=== PATIENT | male | born 1960 | race African-American/Black ===

== ENCOUNTER 2017-03-24 20:16 | Emergency (ER) | payer OTHER ==
[~2017-03-24] VITALS: Ht 182.9 cm; Wt 88.6 kg
[~2017-03-24 20:16] MED LIST: ENAL5TAB98 PO; GLYB1TAB50 PO; LIPI80TA16 PO; METO25 PO; PROT40TA PO
[2017-03-24 20:18] VITALS: BP 186/113; PULSE 109; RESP 18; TEMP 98.9; O2SAT 98
[2017-03-24] MEDS ORDERED: METO25TA3 PO (20:53)
[2017-03-24] MEDS ORDERED: ENAL5TAB98 PO (20:53)
[2017-03-24] MEDS ORDERED: GLYB2.5T3 PO (20:53)
[2017-03-24] MEDS ORDERED: LIPI80TA PO (20:53)
[2017-03-24] MEDS ORDERED: PROT40TA PO (20:53)
--- NOTE | 2017-03-24 21:20 | PD ---
HPI Chief Complaint: Abnormal Results Time Seen by Provider: 20:56 Travel History International Travel<30 days: No Contact w/Intl Traveler<30days: No Traveled to known affect area: No History of Present Illness HPI 56-year-old black male with a known history of metastatic prostate cancer, [place], coronary artery disease, hypertension, diabetes, hypercholesterolemia presents to emergency department at the request of EMS. The patient presents by POV. He states that he had a CAT scan performed at [facility] due to his recent worsening prostate cancer. He states that an ambulance showed up at the house earlier this evening and was advised that the [facility] had contacted the [facility] to bring the patient to the hospital emergently. The patient declined transport and came in POV with his . The patient is unaware of why he had to come to the hospital. He did not know with the reason for the results of the CAT scan was. The patient denies any chest pain, shortness of breath, nausea, vomiting, abdominal pain, numbness, tingling or focal weakness. Patient states that he was cooking dinner at the time EMS showed up. PFSH Past Medical History Narrative Medical Metastatic prostate cancer, coronary artery disease, [place], diabetes, hypercholesterolemia, hypertension Blood Disorders: No Cancer: No Cardiac Catheterization: Yes (WITH STENT) Cardiovascular Problems: Yes (HTN, hyperlipidemia) High Cholesterol: Yes Diabetes: Yes Patient Takes Glucophage: No Endocrine: No Genitourinary: No Hypertension: Yes Immune Disorder: No Musculoskeletal: No Neurologic: No Reproductive: No Respiratory: No Tetanus Vaccination: < 5 Years Influenza Vaccination: No Social History Alcohol Use: No Tobacco Use: No Substance Use: No Allergies-Medications (Allergen,Severity, Reaction): Coded Allergies: No Known Allergies (Verified , 06/01/14) Reported Meds & Prescriptions Reported Meds & Active Scripts Active Reported Protonix (Pantoprazole Sodium) 40 Mg Tab 40 Mg PO DAILY Metoprolol Tartrate 25 Mg Tab 25 Mg PO BID Glyburide 2.5 Mg Tab 2.5 Mg PO DAILY Take with meals at the same time each day Vasotec (Enalapril Maleate) 5 Mg Tab 5 Mg PO DAILY Lipitor (Atorvastatin Calcium) 80 Mg Tab 80 Mg PO HS Review of Systems General / Constitutional: No: Fever Eyes: No: Visual changes HENT: No: Headaches Cardiovascular: No: Chest Pain or Discomfort Respiratory: No: Shortness of Breath Gastrointestinal: No: Abdominal Pain Genitourinary: No: Dysuria Musculoskeletal: No: Pain Skin: No Rash Neurologic: No: Weakness Psychiatric: No: Depression Endocrine: No: Polydipsia Hematologic/Lymphatic: No: Easy Bruising Physical Exam Narrative GENERAL: Well-developed, well-nourished in no apparent distress. Nontoxic appearing. HEAD: Normocephalic, atraumatic. EYES: Pupils equal round and reactive. Extraocular motions intact. No scleral icterus. No injection or drainage. ENT: Nose clear. Throat without erythema, tonsillar hypertrophy or exudate. Uvula midline. Airway patent. NECK: Trachea midline. Supple, nontender, moves head freely. No central bony tenderness or spasm. CARDIOVASCULAR: Regular rate and rhythm without murmurs, gallops, or rubs. RESPIRATORY: Clear to auscultation. Breath sounds equal bilaterally. No wheezes , rales, or rhonchi. GASTROINTESTINAL: Abdomen soft, non-tender, nondistended. No hepato-splenomegaly , or palpable masses. No guarding. EXTREMITIES: No clubbing, cyanosis, or edema. No joint tenderness. BACK: Nontender without deformity. No flank tenderness. NEUROLOGICAL: Awake, alert and oriented x 3 .Cranial nerves grossly intact. Motor and sensory grossly within normal limits. Normal speech. Data Data Last Documented VS Vital Signs Date Time Temp Pulse Resp B/P (MAP) Pulse Ox O2 Delivery O2 Flow Rate FiO2 03/24/17 20:18 98.9 109 18 186/113 (137) 98 Room Air Orders Orders Complete Blood Count With Diff (03/24/17 21:07) Comprehensive Metabolic Panel (03/24/17 21:07) Prothrombin Time / Inr (Pt) (03/24/17 21:07) Act Partial Throm Time (Ptt) (03/24/17 21:07) Ua Includes Microscopic (03/24/17 21:07) Iv Access Insert/Monitor (03/24/17 21:07) Ecg Monitoring (03/24/17 21:07) Type And Screen (03/24/17 21:07) Blood Pressure (03/24/17 21:07) Ct Brain W/O Iv Contrast(Rout) (03/24/17 22:31) Ventilation & Perfusion Scan (03/24/17 22:31) Electrocardiogram (03/24/17 23:42) Troponin I (03/24/17 21:35) Labs Laboratory Tests Test 03/24/17 21:35 White Blood Count 7.0 TH/MM3 Red Blood Count 3.79 MIL/MM3 Hemoglobin 11.2 GM/DL Hematocrit 33.9 % Mean Corpuscular Volume 89.4 FL Mean Corpuscular Hemoglobin 29.6 PG Mean Corpuscular Hemoglobin Concent 33.1 % Red Cell Distribution Width 14.0 % Platelet Count 288 TH/MM3 Mean Platelet Volume 7.8 FL Neutrophils (%) (Auto) 62.7 % Lymphocytes (%) (Auto) 26.2 % Monocytes (%) (Auto) 9.4 % Eosinophils (%) (Auto) 0.9 % Basophils (%) (Auto) 0.8 % Neutrophils # (Auto) 4.4 TH/MM3 Lymphocytes # (Auto) 1.8 TH/MM3 Monocytes # (Auto) 0.7 TH/MM3 Eosinophils # (Auto) 0.1 TH/MM3 Basophils # (Auto) 0.1 TH/MM3 CBC Comment DIFF FINAL Differential Comment Prothrombin Time 10.8 SEC Prothromb Time International Ratio 1.1 RATIO Activated Partial Thromboplast Time 25.0 SEC Blood Urea Nitrogen 18 MG/DL Creatinine 1.44 MG/DL Random Glucose 166 MG/DL Total Protein 8.1 GM/DL Albumin 4.5 GM/DL Calcium Level 9.5 MG/DL Alkaline Phosphatase 57 U/L Aspartate Amino Transf (AST/SGOT) 24 U/L Alanine Aminotransferase (ALT/SGPT) 43 U/L Total Bilirubin 0.4 MG/DL Sodium Level 136 MEQ/L Potassium Level 4.1 MEQ/L Chloride Level 104 MEQ/L Carbon Dioxide Level 25.1 MEQ/L Anion Gap 7 MEQ/L Estimat Glomerular Filtration Rate 62 ML/MIN Troponin I LESS THAN 0.02 NG/ML MDM Medical Decision Making Medical Screen Exam Complete: Yes Emergency Medical Condition: Yes Medical Record Reviewed: Yes Interpretation(s) CT brain: Negative Laboratory Tests Test 03/24/17 21:35 White Blood Count 7.0 TH/MM3 Red Blood Count 3.79 MIL/MM3 Hemoglobin 11.2 GM/DL Hematocrit 33.9 % Mean Corpuscular Volume 89.4 FL Mean Corpuscular Hemoglobin 29.6 PG Mean Corpuscular Hemoglobin Concent 33.1 % Red Cell Distribution Width 14.0 % Platelet Count 288 TH/MM3 Mean Platelet Volume 7.8 FL Neutrophils (%) (Auto) 62.7 % Lymphocytes (%) (Auto) 26.2 % Monocytes (%) (Auto) 9.4 % Eosinophils (%) (Auto) 0.9 % Basophils (%) (Auto) 0.8 % Neutrophils # (Auto) 4.4 TH/MM3 Lymphocytes # (Auto) 1.8 TH/MM3 Monocytes # (Auto) 0.7 TH/MM3 Eosinophils # (Auto) 0.1 TH/MM3 Basophils # (Auto) 0.1 TH/MM3 CBC Comment DIFF FINAL Differential Comment Prothrombin Time 10.8 SEC Prothromb Time International Ratio 1.1 RATIO Activated Partial Thromboplast Time 25.0 SEC Blood Urea Nitrogen 18 MG/DL Creatinine 1.44 MG/DL Random Glucose 166 MG/DL Total Protein 8.1 GM/DL Albumin 4.5 GM/DL Calcium Level 9.5 MG/DL Alkaline Phosphatase 57 U/L Aspartate Amino Transf (AST/SGOT) 24 U/L Alanine Aminotransferase (ALT/SGPT) 43 U/L Total Bilirubin 0.4 MG/DL Sodium Level 136 MEQ/L Potassium Level 4.1 MEQ/L Chloride Level 104 MEQ/L Carbon Dioxide Level 25.1 MEQ/L Anion Gap 7 MEQ/L Estimat Glomerular Filtration Rate 62 ML/MIN Troponin I LESS THAN 0.02 NG/ML Last 24 hours Impressions Lung Scan- Nuclear Medicine 03/24/172230 Signed Impressions: Service Date/Time: Friday, March 24, 2017 23:54 - CONCLUSION: Low probability for pulmonary embolus. Cornell Sullivan MD Differential Diagnosis Differential diagnoses: COPD, pulmonary embolus, coronary disease, metastatic prostate cancer Narrative Course IV access is obtained. Routine laboratory tests sent for analysis. Bilateral upper extremity blood pressures performed. His blood pressure in the right arm is 182/111 and blood pressure in the left arm is 175/106. Patient is on a panel monitor and O2 sat monitor. Patient's given a liter bolus normal saline. EMS was called. They informed us that the patient had a CAT scan performed today which showed possible pulmonary embolus. The patient's ventilation perfusion scan is low probability. CT brain is negative for acute intercranial pathology. Patient's laboratory tests including EKG and cardiac markers are negative. Patient is informed of these findings. This is medical clearance, abnormal CT abdomen Diagnosis Primary Impression: medical clearance exam Additional Impressions: Abnormal CAT scan Metastatic malignant neoplasm to prostate Patient Instructions: General Instructions Additional Instructions: Rest. [facility] office in the morning. Disposition: 01 DISCHARGE HOME Condition: Stable Alan Ram Mar 24, 2017 21:20
[2017-03-24 21:58] LABS: AUTOMATED NEUTROPHIL # 4.4 TH/MM3 (1.8-7.7); BASOPHIL # 0.1 TH/MM3 (0-0.2); BASOPHIL % 0.8 % (0.0-2.0); EOSINOPHIL # 0.1 TH/MM3 (0-0.4); EOSINOPHIL % 0.9 % (0.0-4.0); HEMATOCRIT 33.9 % (39.0-51.0); HEMOGLOBIN 11.2 GM/DL (13.0-17.0); LYMPH % 26.2 % (9.0-44.0); LYMPHOCYTE # 1.8 TH/MM3 (1.0-4.8); MEAN CELL VOLUME 89.4 FL (80.0-100.0); MEAN CORPUSCULAR HEMOGLOBIN 29.6 PG (27.0-34.0); MEAN CORPUSCULAR HGB CONC 33.1 % (32.0-36.0); MEAN PLATELET VOLUME 7.8 FL (7.0-11.0); MONO % 9.4 % (0.0-8.0); MONOCYTE # 0.7 TH/MM3 (0-0.9); NEUT % 62.7 % (16.0-70.0); PLATELET COUNT 288 TH/MM3 (150-450); RED BLOOD COUNT 3.79 MIL/MM3 (4.50-5.90)
[2017-03-24 22:09] LABS: INTERNATIONAL NORMALIZED RATIO 1.1 RATIO; PROTHROMBIN TIME - PATIENT 10.8 SEC (9.8-11.6)
[2017-03-24 22:29] LABS: ALT (GPT) 43 U/L (12-78)
[2017-03-24 22:32] LABS: ALBUMIN 4.5 GM/DL (3.4-5.0); ALKALINE PHOSPHATASE 57 U/L (45-117); AST (GOT) 24 U/L (15-37); BICARBONATE 25.1 MEQ/L (21.0-32.0); BLOOD UREA NITROGEN 18 MG/DL (7-18); CALCIUM 9.5 MG/DL (8.5-10.1); CHLORIDE 104 MEQ/L (98-107); CREATININE 1.44 MG/DL (0.60-1.30); GLOMERULAR FILTRATION RATE 62 ML/MIN (>89); GLUCOSE,RANDOM 166 MG/DL (74-106); SODIUM (NA) 136 MEQ/L (136-145); TOTAL BILIRUBIN ADULT 0.4 MG/DL (0.2-1.0); TOTAL PROTEIN 8.1 GM/DL (6.4-8.2)
[2017-03-25 00:09] LABS: TROPONIN I LESS THAN 0.02 NG/ML (0.02-0.05)
--- NOTE | 2017-03-25 00:27 | RADRPT ---
EXAM DATE/TIME: 03/24/2017 23:54 [facility] COMPARISON: No previous studies available for comparison. INDICATIONS : Shortness of breath for one day. DOSE: 8.7 mCi Tc99m MAA IV 0.87 mCi Tc99m DTPA aerosol MEDICAL HISTORY : Carcinoma, prostate. Diabetes mellitus type 2. Cardiovascular disease SURGICAL HISTORY : Coronary artery stent. ENCOUNTER: Initial ACUITY: 1 day PAIN SCALE: 0/10 LOCATION: chest TECHNIQUE: Following five minutes of tidal breathing of DTPA aerosol, planar images of the lungs were performed in eight projections. The patient was then injected with MAA, and eight-view perfusion scan was perf ormed. FINDINGS: There is a homogeneous pattern of aerosol delivery to the periphery of both lungs. No focal ventilat ory defects are seen. The perfusion lung scan demonstrates a homogenous pattern of uptake in both lungs. No segmental or s ubsegmental defects are seen. A current chest x-ray is unavailable. CONCLUSION: Low probability for pulmonary embolus. Cornell Sullivan MD on March 25, 2017 at 0:24 Board Certified Radiologist. This report was verified electronically.
--- NOTE | 2017-03-25 00:49 | RADRPT ---
EXAM DATE/TIME: 03/25/2017 00:12 [facility] COMPARISON: No previous studies available for comparison. INDICATIONS : Cephalgia. RADIATION DOSE: 56.35 CTDIvol (mGy) MEDICAL HISTORY : Carcinoma, prostate. SURGICAL HISTORY : None. ENCOUNTER: Initial ACUITY: 1 day PAIN SCALE: 4/10 LOCATION: cranial TECHNIQUE: Multiple contiguous axial images were obtained of the head. Using automated exposure control and adj ustment of the mA and/or kV according to patient size, radiation dose was kept as low as reasonably a chievable to obtain optimal diagnostic quality images. DICOM format image data is available electro nically for review and comparison. FINDINGS: CEREBRUM: The ventricles are normal for age. No evidence of midline shift, mass lesion, hemorrhage or acute in farction. No extra-axial fluid collections are seen. POSTERIOR FOSSA: The cerebellum and brainstem are intact. The 4th ventricle is midline. The cerebellopontine angle i s unremarkable. EXTRACRANIAL: The visualized portion of the orbits is intact. There is bilateral maxillary sinus disease. SKULL: The calvaria is intact. No evidence of skull fracture. CONCLUSION: 1. No intracranial abnormality seen. 2. Maxillary sinus disease. Cornell Sullivan MD on March 25, 2017 at 0:47 Board Certified Radiologist. This report was verified electronically.
[2017-03-25 01:09] VITALS: BP 157/98
== END 2017-03-25 01:27 | disposition home or self-care (01) ==
LOC: NEPD 20:16
DX: R93.5 Abnormal findings on diagnostic imaging of other abdominal regions, including retroperitoneum (principal); C61 Malignant neoplasm of prostate; C79.9 Secondary malignant neoplasm of unspecified site; I10 Essential (primary) hypertension; E11.9 Type 2 diabetes mellitus without complications; E78.00 Pure hypercholesterolemia, unspecified; I25.2 Old myocardial infarction; Z76.89 Persons encountering health services in other specified circumstances; Z79.84 Long term (current) use of oral hypoglycemic drugs; Z79.899 Other long term (current) drug therapy
CPT/HCPCS: 70450; 78582; 80053; 84484; 85025; 85610; 85730; 86850; 86900; 86901; 99284; A9540; A9567